=== PATIENT | male | born 2000 | race African-American/Black ===

== ENCOUNTER 2025-07-11 21:35 | Emergency (ER) | payer OTHER, SELFPAY ==
[2025-07-11 23:44] LABS: #Basophils 0.04 10x3/uL (0.0-0.2); #Eosinophils 0.50 10x3/uL (0.0-0.7); #Monocytes 0.61 10x3/uL (0.11-0.59); #Neutrophils 3.14 10x3/uL (1.40-6.50); %Basophils 0.6 % (0.0-1.0); %Eosinophils 7.3 % (0.0-10.0); %Lymphocytes 36.9 % (21.0-51.0); %Monocytes 9.0 % (0.0-10.0); %Neutrophils 46.1 % (42.0-75.0); Hematocrit 45.1 % (42.0-52.0); Hemoglobin 14.6 g/dL (14.0-18.0); Mean Corpuscular Hemoglobin 27.7 pg (27.0-31.0); Mean Corpuscular Volume 85.4 fL (78.0-98.0); Platelet Count 338 10x3/uL (130-400); Red Blood Cell (RBC) Count 5.28 mill/uL (4.70-6.10); White Blood Cell (WBC) Count 6.81 10x3/uL (4.8-10.8)
[2025-07-11 23:58] LABS: ALT (SGPT) 17 U/L (Less than 45); AST (SGOT) 25 U/L (11-34); Albumin 4.6 g/dL (3.1-4.5); Alkaline Phosphatase 85 U/L (40-110); Anion Gap 14 mmol/L (10-20); BUN (Urea Nitrogen) 12 mg/dL (8.9-20.6); Bilirubin, Total 0.4 mg/dL (0.3-1.2); Calc. Creatinine Clearance 0 mL/min (70-130); Calcium 9.8 mg/dL (7.8-10.44); Carbon Dioxide 25 mmol/L (22-29); Chloride 103 mmol/L (98-107); Globulin 3.1 g/dL (2.4-3.5); Glucose 90 mg/dL (70-105); Potassium 4.3 mmol/L (3.5-5.1); Sodium 138 mmol/L (136-145)
[2025-07-12] MEDS ORDERED: Acetaminophen 500 MG TAB ONE (01:26)
== END 2025-07-12 04:30 | disposition home or self-care (01) ==
LOC: ERS 21:35
DX: L08.9 Local infection of the skin and subcutaneous tissue, unspecified (principal)
CPT/HCPCS: 36415; 80053; 85025; 99283

== ENCOUNTER 2025-07-18 20:02 | Emergency (ER) | payer OTHER ==
[2025-07-18] MEDS ORDERED: Ketorolac Tromethamine 30 MG (1 mL) VIAL ONE (20:54)
[2025-07-18] MEDS ORDERED: Cefepime 2 GM VIAL ONE (20:55)
[2025-07-18 21:32] LABS: ALT (SGPT) 28 U/L (Less than 45); AST (SGOT) 36 U/L (11-34); Albumin 4.6 g/dL (3.1-4.5); Alkaline Phosphatase 80 U/L (40-110); Anion Gap 16 mmol/L (10-20); BUN (Urea Nitrogen) 14 mg/dL (8.9-20.6); Bilirubin, Total 0.4 mg/dL (0.3-1.2); Calc. Creatinine Clearance 0 mL/min (70-130); Calcium 9.5 mg/dL (7.8-10.44); Carbon Dioxide 27 mmol/L (22-29); Chloride 103 mmol/L (98-107); Globulin 2.6 g/dL (2.4-3.5); Glucose 98 mg/dL (70-105); Potassium 3.8 mmol/L (3.5-5.1); Sodium 142 mmol/L (136-145)
[2025-07-18 21:35] LABS: #Basophils 0.05 10x3/uL (0.0-0.2); #Eosinophils 0.34 10x3/uL (0.0-0.7); #Monocytes 0.59 10x3/uL (0.11-0.59); #Neutrophils 3.78 10x3/uL (1.40-6.50); %Basophils 0.6 % (0.0-1.0); %Eosinophils 3.9 % (0.0-10.0); %Lymphocytes 45.5 % (21.0-51.0); %Monocytes 6.7 % (0.0-10.0); %Neutrophils 42.7 % (42.0-75.0); Hematocrit 44.1 % (42.0-52.0); Hemoglobin 14.9 g/dL (14.0-18.0); Mean Corpuscular Hemoglobin 28.5 pg (27.0-31.0); Mean Corpuscular Volume 84.3 fL (78.0-98.0); Platelet Count 356 10x3/uL (130-400); Red Blood Cell (RBC) Count 5.23 mill/uL (4.70-6.10); White Blood Cell (WBC) Count 8.83 10x3/uL (4.8-10.8)
[2025-07-18] MEDS ORDERED: Ondansetron PF 4 MG/2 ML Vial ONE (22:28)
[2025-07-18] MEDS ORDERED: Dexamethasone 10 MG/ML VIAL ONE (22:32)
== END 2025-07-19 01:07 | disposition home or self-care (01) ==
LOC: ERS 20:02
DX: M79.604 Pain in right leg (principal); L08.9 Local infection of the skin and subcutaneous tissue, unspecified
CPT/HCPCS: 80053; 83605; 85025; 86141; 87040; 96365; 96366; 96375; J0692; J1100; J1885; J2405; J3010